=== PATIENT | male | born 1970 | race Caucasian/White ===

== ENCOUNTER 2017-05-23 09:06 | Emergency (ER) | payer OTHER ==
[~2017-05-23] VITALS: Wt 90.7 kg
[~2017-05-23 09:06] MED LIST: AMOXICILLIN500 MG PO; CIPRODEX 0.3%-7.5 ML OT; DONNATAL1 TAB PO; LOMOTIL 0.025 M1 TA1 PO; VICODIN 5/500 505 MG PO; VICODIN ES 7501 TAB PO; ZOFRAN ODT4 MG PO; ZOFRAN ODT4 MG SL
[2017-05-23] MEDS ORDERED: AVPAK AZITHROM250 M1 PO (09:14)
[2017-05-23 09:15] VITALS: BP 135/88
[2017-05-23] MEDS ORDERED: KEFLEX500 M1 PO (09:20)
[2017-05-23] MEDS ORDERED: NAPROSYN500 MG PO (09:20)
== END 2017-05-23 10:03 | disposition home or self-care (01) ==
LOC: ED 09:06
DX: S81.811A Laceration without foreign body, right lower leg, initial encounter (principal); R03.0 Elevated blood-pressure reading, without diagnosis of hypertension; Z23 Encounter for immunization; Z79.899 Other long term (current) drug therapy; F10.10 Alcohol abuse, uncomplicated; W26.0XXA Contact with knife, initial encounter; Y93.89 Activity, other specified; Y92.89 Other specified places as the place of occurrence of the external cause; Y99.8 Other external cause status